=== PATIENT | female | born 1965 | race Caucasian/White ===

== ENCOUNTER 2020-10-25 00:46 | Emergency (ER) | payer MEDICAID ==
[~2020-10-25] VITALS: Ht 165.1 cm; Wt 44.0 kg
[2020-10-25 01:07] VITALS: BP 150/73
[2020-10-25] MEDS ORDERED: ACETAMINOPHEN 325MG TABLET PO ONE (01:45)
== END 2020-10-25 02:40 | disposition home or self-care (01) ==
LOC: ER 00:46
DX: S09.8XXA Other specified injuries of head, initial encounter (principal); I50.9 Heart failure, unspecified; E78.00 Pure hypercholesterolemia, unspecified; Z86.11 Personal history of tuberculosis; Z85.3 Personal history of malignant neoplasm of breast; Z90.11 Acquired absence of right breast and nipple; Z88.0 Allergy status to penicillin; Y04.0XXA Assault by unarmed brawl or fight, initial encounter; Y93.89 Activity, other specified; Y92.214 College as the place of occurrence of the external cause; Y99.8 Other external cause status
CPT/HCPCS: 99282